=== PATIENT | female | born 1955 | race Caucasian/White ===

== ENCOUNTER → 2016-06-14 | Outpatient (CLI) | payer OTHER | LOC: BMCIMAGING 09:10 | PROVIDERS: ATTEND Internal Medicine | DX: R05 Cough (principal) ==

== ENCOUNTER → 2016-08-02 | Outpatient (CLI) | payer OTHER | LOC: BMCIMAGING 11:02 | PROVIDERS: ATTEND Internal Medicine | DX: M79.644 Pain in right finger(s) (principal) ==

== ENCOUNTER → 2017-03-28 | Outpatient (CLI) | payer OTHER | LOC: FIMAGING 10:37 | PROVIDERS: ATTEND Physician Assistant Medical | DX: Z12.31 Encounter for screening mammogram for malignant neoplasm of breast (principal) | CPT/HCPCS: G0202 ==

== ENCOUNTER → 2018-04-01 | Outpatient (CLI) | payer OTHER | LOC: FIMAGING 10:46 | PROVIDERS: ATTEND Physician Assistant Medical | DX: Z12.31 Encounter for screening mammogram for malignant neoplasm of breast (principal) ==